=== PATIENT | female | born 1945 | race Caucasian/White ===

== ENCOUNTER 2018-04-27 09:03 | Outpatient (CLI) | payer MEDICARE, OTHER ==
[2018-04-27 09:26] LABS: BASOPHILS % 0.6 (0.0-1.5); EOSINOPHILS % 3.1 % (0.0-6.8); MEAN CORPUSCULAR HEMOGLOBIN 30.8 pg (28.0-34.0); MEAN CORPUSCULAR VOLUME 89.7 fl (80.0-100.0); MONOCYTES % 6.1 % (0.0-11.0); NEUTROPHILS # 2.6 # k/uL (1.4-7.7)
[2018-04-27 09:50] LABS: eGFR (African) > 60; eGFR (Non-African) > 60
[2018-04-27 09:57] LABS: APPEARANCE,URINE CLEAR (CLEAR); COLOR,URINE YELLOW (YELLOW); OCCULT BLOOD,URINE TRACE-LYSED (NEGATIVE); PH URINE 5.5 (5.0 - 8.0); UROBILINOGEN URINE 0.2 Eu (0.2-1.0)
== END 2018-04-27 09:05 ==
LOC: LAB 09:03
PROVIDERS: ATTEND Internal Medicine
DX: Z00.00 Encounter for general adult medical examination without abnormal findings (principal); R53.83 Other fatigue; E55.9 Vitamin D deficiency, unspecified; E78.5 Hyperlipidemia, unspecified
CPT/HCPCS: 36415; 80053; 80061; 81002; 82306; 84439; 84443; 85025

== ENCOUNTER 2019-02-15 16:14 | Outpatient (CLI) | payer MEDICARE, OTHER ==
[2019-02-15 18:06] LABS: eGFR (Non-African) > 60
[2019-02-15 18:07] LABS: BASOPHILS % 1.6 % (0.0-1.5); EOSINOPHILS % 1.9 % (0.0-6.8); MEAN CORPUSCULAR HEMOGLOBIN 30.6 pg (28.0-34.0); MONOCYTES % 6.3 % (0.0-11.0); NEUTROPHILS # 5.3 # k/uL (1.4-7.7)
== END 2019-02-15 16:15 ==
LOC: LAB 16:14
PROVIDERS: ATTEND Internal Medicine
DX: I10 Essential (primary) hypertension (principal); R07.9 Chest pain, unspecified
CPT/HCPCS: 36415; 80053; 84484; 85025

== ENCOUNTER 2019-08-05 07:40 | Outpatient (CLI) | payer MEDICARE, OTHER ==
[2019-08-18 07:50] LABS: APPEARANCE,URINE CLEAR (CLEAR); BASOPHILS % 0.4 % (0.0-1.5); COLOR,URINE YELLOW (YELLOW); NEUTROPHILS # 3.1 # k/uL (1.4-7.7)
[2019-08-18 07:51] LABS: OCCULT BLOOD,URINE TRACE-INTACT (NEGATIVE); UROBILINOGEN URINE 0.2 Eu (0.2-1.0)
[2019-08-18 07:52] LABS: A1C 5.8 % (<5.7); HDL 51 mg/dL (>40); eGFR (Non-African) > 60
== END 2019-08-05 07:50 ==
LOC: LAB 07:40
PROVIDERS: ATTEND Internal Medicine
DX: I10 Essential (primary) hypertension (principal); E11.9 Type 2 diabetes mellitus without complications; E78.5 Hyperlipidemia, unspecified; E03.9 Hypothyroidism, unspecified; E55.9 Vitamin D deficiency, unspecified; R53.83 Other fatigue
CPT/HCPCS: 36415; 80053; 80061; 81002; 82306; 83036; 84439; 84443; 85025